=== PATIENT | female | born 1980 | race Caucasian/White ===

== ENCOUNTER 2019-08-18 06:57 | Inpatient (IN) ==
--- NOTE | 2019-07-30 15:55 | PAT Medication Instructions ---
Medication Instructions Date of Service July 30, 2019 Home Medications Nasal [place] 1 dose NA UD PRN Vicks Nasal [place] 1 dose NA Q4H PRN albuterol sulfate 2 puff INHALATION Q4H PRN brexpiprazole [Rexulti] 1 mg PO HS dextroamphetamine-amphetamine [Adderall] 10 mg PO DAILY dextroamphetamine-amphetamine [Adderall] 15 mg PO QAM levocetirizine [Xyzal] 10 mg PO DAILY meloxicam 7.5 mg PO DAILY minocycline 150 mg PO BID mometasone-formoterol [Dulera] 2 puff INHALATION BID omeprazole 40 mg PO BID pregabalin [Lyrica] 150 mg PO TID solriamfetol [Sunosi] 75 mg PO QAM venlafaxine [Effexor XR] 75 mg PO QAM venlafaxine [Effexor XR] 150 mg PO QAM ASK your surgeon for instructions meloxicam 7.5 mg PO DAILY DO NOT take the morning of surgery dextroamphetamine-amphetamine [Adderall] 10 mg PO DAILY dextroamphetamine-amphetamine [Adderall] 15 mg PO QAM levocetirizine [Xyzal] 10 mg PO DAILY solriamfetol [Sunosi] 75 mg PO QAM Take morning of surgery With a small sip of water, OTHERWISE NOTHING TO EAT OR DRINK AFTER MIDNIGHT: Nasal [place] 1 dose NA UD PRN (if needed) Vicks Nasal [place] 1 dose NA Q4H PRN (if needed) albuterol sulfate 2 puff INHALATION Q4H PRN (if needed, and please bring with you to the hospital) minocycline 150 mg PO BID mometasone-formoterol [Dulera] 2 puff INHALATION BID omeprazole 40 mg PO BID pregabalin [Lyrica] 150 mg PO TID venlafaxine [Effexor XR] 75 mg PO QAM venlafaxine [Effexor XR] 150 mg PO QAM Take evening before surgery Nasal [place] 1 dose NA UD PRN (if needed) Vicks Nasal [place] 1 dose NA Q4H PRN (if needed) albuterol sulfate 2 puff INHALATION Q4H PRN (if needed) brexpiprazole [Rexulti] 1 mg PO HS minocycline 150 mg PO BID mometasone-formoterol [Dulera] 2 puff INHALATION BID omeprazole 40 mg PO BID pregabalin [Lyrica] 150 mg PO TID Other Notes If you have any questions please call us at [phone] or [phone] or or [phone]
--- NOTE | 2019-07-31 10:58 | Anesthesiology Consultation ---
Date of Service July 31, 2019 Assessment & Plan (1) Encounter for pre-operative examination: test AM DOS Chart Review Chart Review: Acceptable Risk for Surgery and Patient seen in Pre Admission Testing Teaching & Discussion Instructed NPO after midnight before surgery, except medications with 15 cc of water. Medication instructions provided according to the PAT guidelines. History Surgery Operation Date: 08/18/19 09:35 Proposed Procedures p L4-L5 Decompression and Fusion, Spinal Cord Monitoring - Choco Sheldon, Height/Weight Height: 5 ft 5 in Weight: 73.3 kg Allergies Allergy/AdvReac Type Severity Reaction Status Date / Time tramadol [From Ultram] Allergy Severe ED VISIT Verified 07/24/19 09:00 FOR, LABORED BREATHING acetaminophen [From Percocet] Allergy Unknown Rash Verified 07/24/19 09:00 adhesive tape Allergy Unknown ITCHY/RASHY Verified 07/24/19 09:00 latex Allergy Unknown ITCHY/RASH Verified 07/24/19 09:00 oxycodone [From Percocet] Allergy Unknown Rash Verified 07/24/19 09:00 pneumococcal vaccine Allergy Unknown Hives Verified 07/24/19 09:00 Medications Home Medications Medication Instructions Recorded Confirmed Last Taken Nasal [place] 1 dose NA UD PRN 07/24/19 07/24/19 Unknown Vicks Nasal [place] 1 dose NA Q4H PRN 07/24/19 07/24/19 Unknown albuterol sulfate 2 puff INHALATION Q4H PRN 07/24/19 07/24/19 Unknown brexpiprazole [Rexulti] 1 mg PO HS 07/24/19 07/24/19 Unknown dextroamphetamine-amphetamine 10 mg PO DAILY 07/24/19 07/24/19 Unknown [Adderall] dextroamphetamine-amphetamine 15 mg PO QAM 07/24/19 07/24/19 Unknown [Adderall] levocetirizine [Xyzal] 10 mg PO DAILY 07/24/19 07/24/19 Unknown meloxicam 7.5 mg PO DAILY 07/24/19 07/24/19 Unknown minocycline 150 mg PO BID 07/24/19 07/24/19 Unknown mometasone-formoterol [Dulera] 2 puff INHALATION BID 07/24/19 07/24/19 Unknown omeprazole 40 mg PO BID 07/24/19 07/24/19 Unknown pregabalin [Lyrica] 150 mg PO TID 07/24/19 07/24/19 Unknown solriamfetol [Sunosi] 75 mg PO QAM 07/24/19 07/24/19 Unknown venlafaxine [Effexor XR] 75 mg PO QAM 07/24/19 07/24/19 Unknown venlafaxine [Effexor XR] 150 mg PO QAM 07/24/19 07/24/19 Unknown Past Medical History Medical History (Updated 07/31/19 @ 11:00 by Pb Benites) Abdominal lump Pt feels palpable mass in lower abdomen; painless; possibly umbilical hernia that was noted on CT scan years ago, pt will f/u with PCP. Acid reflux Anxiety GENERALIZED Asthma Using Dulera BID and albuterol QID (does not feel SOB before using albuterol but is currently using QID "to make sure airways stay open") Attention deficit disorder (ADD) in adult Bipolar disorder Depression Diverticulitis Elevated liver enzymes Fibromyalgia Frequent UTI OVER THE LAST YR, MOST RECENT : 2 MON AGO (MOST SELF DX/DRINKS CRANBERRY JUICE AND WATER AND RESOLVES) History of sleep apnea CPAP, NOT USING - LOST 140 POUNDS. Has not been restested. Hydradenitis Low kidney function Narcolepsy Phobia FEAR OF BODILY FLUIDS Pinched nerve AND BACK AND SLIPPED DISC Pinched nerve in neck Spinal stenosis TMJ (temporomandibular joint disorder) HX OF PARTIALLY LOCKING - MOST RECENTLY ~ 1 WEEK AGO, MASSAGED TO UNLOCK. Tourettes syndrome Dx when much younger, now noticing tics more frequently. Umbilical hernia Exercise / Class Metabolic Activity II 4-5 Yardwork/Stairs/Walk up hill (Denies CP or SOB with 1 FOS) Past Family History Family History (Updated 07/24/19 @ 09:18 by Boogie Ramirez RN) Aunt Family history of diabetes mellitus Family history of colon cancer Uncle Family history of diabetes mellitus Past Surgical History Surgical History History of 2 sections History of arthroscopy of left knee History of colonoscopy History of endoscopy MULTIPLE History of gastric bypass Past Anesthesia History No Hx of Anesthesia Complications and No Family Hx of Anesthesia Complications History of PONV No Hx of PONV and Hx of Motion Sickness Social History Smoking Status: Current every day smoker tobacco type: cigarettes Smoking cigarettes per day: 1/2 PPD/ADVISED NPO Do You Dip or Chew Tobacco: No Hx Alcohol Use: No Hx Substance Use: No substance use type: does not use Review of Systems Pt denies any recent chest pain, shortness of breath, cough, fever or URI. +palpitations (has PVCs occasionally) Physical Exam Vital Signs BP: 134/84 P: 93bpm SPO2: 100% RA T: 98.3% R: 16 ENMT Mouth: + chipped teeth (Lower R wisdom tooth); no dental restorations and no loose teeth Thyromental Distance: > or= 3.5 Finger Breadths (3.5) Mallampati Class: I Neck normal visual inspection; neck extension not limited Respiratory normal respiratory effort Auscultation: lungs clear to auscultation bilaterally Cardiovascular Rate/Rhythm: regular rhythm and + tachycardic (borderline) Heart Sounds: no murmur Extremities: no edema Testing Laboratory Results 07/31/19 11:05 PT 10.3 Seconds (9.0-12.0) 07/31/19 11:05 INR 1.0 (0.9-1.1) 07/31/19 11:05 APTT 28.1 Seconds (21.0-31.0) 07/31/19 11:05 Urine Color Yellow 07/31/19 Unknown Urine Appearance Clear (Clear) 07/31/19 Unknown Urine pH 5.5 (4.5-7.5) 07/31/19 Unknown Ur Specific [place] 1.013 (1.000-1.030) 07/31/19 Unknown Urine Protein Negative (Negative) 07/31/19 Unknown Urine Glucose (UA) Negative (Negative) 07/31/19 Unknown Urine Ketones Negative (Negative) 07/31/19 Unknown Urine Nitrite Negative (Negative) 07/31/19 Unknown Ur Leukocyte Esterase 1+ (Negative) H 07/31/19 Unknown Urine WBC (Auto) 1-5 /hpf (0-5) 07/31/19 Unknown Urine RBC (Auto) 5-10 /hpf (0-4) H 07/31/19 Unknown U Hyaline Cast (Auto) 1-5 /lpf (0-5) 07/31/19 Unknown U Epithel Cells (Auto) >30 /lpf (0-5) H 07/31/19 Unknown Urine Bacteria (Auto) Negative (Negative) 07/31/19 Unknown Blood Type A Positive 07/31/19 11:05 Antibody Screen NEGATIVE 07/31/19 11:05 06/26/19 SODIUM: 143 POTASSIUM: 4.7 CHLORIDE: 106 CO2: 29 BUN: 14 CREATININE: 0.7 GLUCOSE: 78 Electrocardiogram Date: 03/02/19 Findings: + ST @ (101bpm) Otherwise normal EKG. Chest X-Ray Date: 07/31/19 Findings: + NAD
--- NOTE | 2019-07-31 12:02 | XRay Report ---
XR chest Pre-admission PA/Lat HISTORY: Preop. COMPARISON: None. FINDINGS: The lungs are clear. Cardiac silhouette is normal in size. No pleural effusions. No pneumot horax. IMPRESSION: No acute process. ACT 112: Negative or not required by law. Electronically signed by: Randy Shin M.D. 07/31/2019 12:01 PM
[2019-07-31 12:34] LABS: Basophils # (auto) 0.06 K/uL (0-0.2); Basophils % (auto) 0.7 %; Eosinophils # (auto) 0.09 K/uL (0-0.5); Hematocrit (blood only) 39.3 % (37-47); Hemoglobin 13.5 g/dL (12.0-16.0); Immature Granulocytes # (auto) 0.01 K/uL (0.00-0.02); Immature Granulocytes % (auto) 0.1 %; Lymphocytes # (auto) 3.65 K/uL (1.2-3.4); Lymphocytes % (auto) 41.8 %; Mean Corpuscular Hemoglobin 31.2 pg (25-34); Mean Corpuscular Hgb Conc 34.4 g/dL (32-36); Mean Corpuscular Volume 90.8 fL (80-100); Mean Platelet Volume 10.4 fL (7.4-10.4); Monocytes # (auto) 0.56 K/uL (0.11-0.59); Monocytes % (auto) 6.4 %; Neutrophils # (auto) 4.36 K/uL (1.4-6.5); Platelet Count 229 K/uL (130-400); RDW Coefficient of Variation 12.7 % (11.5-14.5); RDW Standard Deviation 42.4 fL (36.4-46.3); Red Blood Count 4.33 M/uL (4.2-5.4); White Blood Count 8.73 K/uL (4.8-10.8)
[2019-07-31 12:35] LABS: Appearance Urine Clear (Clear); Bacteria Urine Automated Negative (Negative); Bilirubin Urine Negative (Negative); Blood Urine Negative (Negative); Color Urine Yellow; Epithelial Cell Urine Auto >30 /lpf (0-5); Glucose Urine UA Negative (Negative); Ketones Urine Negative (Negative); Leukocyte Esterase Urine 1+ (Negative); Nitrite Urine Negative (Negative); Protein Urine Negative (Negative); Specific Gravity Urine 1.013 (1.000-1.030); Urobilinogen Urine Negative (Negative); pH Urine 5.5 (4.5-7.5)
[2019-07-31 12:46] LABS: Partial Thromboplastin Time 28.1 Seconds (21.0-31.0); Prothrombin Time 10.3 Seconds (9.0-12.0)
--- NOTE | 2019-08-15 12:53 | History & Physical Report ---
Date of Service August 15, 2019 Assessment & Plan (1) Lumbar disc herniation with radiculopathy: This time patient is marked instability spinal listhesis at L4-5 with far lateral disc herniation progressive strength deficits affecting the right lower extremity compared to the left. Subsequently you are recommending urgent decompression and fusion L4-L5 so she does not risk development of permanent foot drop on the right. Risk benefits pros cons alternatives were outlined in detail. Present on Admission?: Yes History of Present Illness Chief Complaint: Back pain with bilateral leg pain and weakness Primary Care Provider: Daphne Konstantin This is a 39-year-old female that has a history of chronic persistent back pain but marked decline in status over the past several months. She describes pain and weakness affecting the right lower extremity greater than the left. It radiates into the buttock posterior lateral thigh extending into the foot. Standing clearly exacerbates her symptoms. She does obtain some relief by flexing forward. She is noting marked decline in strength particularly affecting the left foot dorsiflexion. Standing and walking has become intolerable. Allergies Allergy/AdvReac Type Severity Reaction Status Date / Time tramadol [From Ultram] Allergy Severe ED VISIT Verified 07/24/19 09:00 FOR, LABORED BREATHING acetaminophen [From Percocet] Allergy Unknown Rash Verified 07/24/19 09:00 adhesive tape Allergy Unknown ITCHY/RASHY Verified 07/24/19 09:00 latex Allergy Unknown ITCHY/RASH Verified 07/24/19 09:00 oxycodone [From Percocet] Allergy Unknown Rash Verified 07/24/19 09:00 pneumococcal vaccine Allergy Unknown Hives Verified 07/24/19 09:00 Home Medications Home Medications Medication Instructions Recorded Confirmed Type Nasal [place] 1 dose NA UD PRN 07/24/19 07/24/19 History Vicks Nasal [place] 1 dose NA Q4H PRN 07/24/19 07/24/19 History albuterol sulfate 2 puff INHALATION Q4H PRN 07/24/19 07/24/19 History brexpiprazole [Rexulti] 1 mg PO HS 07/24/19 07/24/19 History dextroamphetamine-amphetamine 10 mg PO DAILY 07/24/19 07/24/19 History [Adderall] dextroamphetamine-amphetamine 15 mg PO QAM 07/24/19 07/24/19 History [Adderall] levocetirizine [Xyzal] 10 mg PO DAILY 07/24/19 07/24/19 History meloxicam 7.5 mg PO DAILY 07/24/19 07/24/19 History minocycline 150 mg PO BID 07/24/19 07/24/19 History mometasone-formoterol [Dulera] 2 puff INHALATION BID 07/24/19 07/24/19 History omeprazole 40 mg PO BID 07/24/19 07/24/19 History pregabalin [Lyrica] 150 mg PO TID 07/24/19 07/24/19 History solriamfetol [Sunosi] 75 mg PO QAM 07/24/19 07/24/19 History venlafaxine [Effexor XR] 75 mg PO QAM 07/24/19 07/24/19 History venlafaxine [Effexor XR] 150 mg PO QAM 07/24/19 07/24/19 History Past Med/Surg History Medical History (Updated 08/15/19 @ 12:52 by Choco Sheldon DO) Abdominal lump Pt feels palpable mass in lower abdomen; painless; possibly umbilical hernia that was noted on CT scan years ago, pt will f/u with PCP. Acid reflux Anxiety GENERALIZED Asthma Using Dulera BID and albuterol QID (does not feel SOB before using albuterol but is currently using QID "to make sure airways stay open") Attention deficit disorder (ADD) in adult Bipolar disorder Depression Diverticulitis Elevated liver enzymes Fibromyalgia Frequent UTI OVER THE LAST YR, MOST RECENT : 2 MON AGO (MOST SELF DX/DRINKS CRANBERRY JUICE AND WATER AND RESOLVES) History of sleep apnea CPAP, NOT USING - LOST 140 POUNDS. Has not been restested. Hydradenitis Low kidney function Narcolepsy Phobia FEAR OF BODILY FLUIDS Pinched nerve AND BACK AND SLIPPED DISC Pinched nerve in neck Spinal stenosis TMJ (temporomandibular joint disorder) HX OF PARTIALLY LOCKING - MOST RECENTLY ~ 1 WEEK AGO, MASSAGED TO UNLOCK. Tourettes syndrome Dx when much younger, now noticing tics more frequently. Umbilical hernia Surgical History History of 2 sections History of arthroscopy of left knee History of colonoscopy History of endoscopy MULTIPLE History of gastric bypass Family History (Updated 07/24/19 @ 09:18 by Boogie Ramirez RN) Aunt Family history of diabetes mellitus Family history of colon cancer Uncle Family history of diabetes mellitus Social History Preferred Language: Danish Communication Ability: Effective Process Design Engineer Required: No Beliefs That Will Affect Care: Buddhism Buddhism Beliefs: JUDAISM Current Living Situation: Family and Other Current Living Situation Comment: SISTER AND FIANCE, 3 KIDS Other Information That Helps Us Care for You: No Feels Safe at Home: Yes Smoking Status: Current every day smoker Tobacco Type: cigarettes ; Cigarettes Per Day: 1/2 PPD/ADVISED NPO ; Do You Dip or Chew Tobacco: No ; Hx Alcohol Use: No Hx Substance Use: No Physical Exam Physical Exam: Patient is obvious distress. She is able to stand but must lean forward to obtain any relief. Lumbar extension reproduces severe pain down her legs right greater than left. Bench exam reveals tension signs bilaterally with straight leg raising. She has a 4/5 right dorsiflexion compared to the left 5/5. Quadriceps are symmetric at a 5/5. Heart is regular rate and rhythm Lungs clear to auscultation Results & Data Diagnostic Findings MRI lumbar spine demonstrates evidence of spondylolisthesis L4-5 with severe neuroforaminal stenosis right greater than left and evidence of disc herniation within the foramina. Axillary views demonstrate severe facet hypertrophy with subarticular lateral recess stenosis and acute far lateral disc herniation L4-5 on the right with marked encroachment of the exiting L4 nerve root.
[~2019-08-18 06:57] MED LIST: ACETAMINOPHEN 500 MG TAB PO SCH; CEFAZOLIN 1000MG 1,000 MG/7.5 ML SYR IV SCH; CeleBREX 200 MG CAP PO SCH; GABAPENTIN 900 MG DOSE PO SCH; LR 15ML/HR IV SCH
[2019-08-18] MEDS ORDERED: ACETAMINOPHEN 500 MG TAB ONE (07:57)
[2019-08-18] MEDS ORDERED: HYDROmorphone INJ 1 MG/ML SYRINGE IV PRN (09:17)
[2019-08-18] MEDS ORDERED: ONDANSETRON INJ 2 MG/ML 2 ML VIAL IV PRN ×2 (09:17→12:54)
[2019-08-18] MEDS ORDERED: ATROPINE SULFATE 0.1 MG/ML 10ML SYR IV PRN (09:17)
[2019-08-18] MEDS ORDERED: ePHEDrine sulfate 50 MG/ML AMP IV PRN (09:17)
--- NOTE | 2019-08-18 09:21 | History & Physical Bridge Note ---
Date of Service August 18, 2019 History & Physical Bridge Note I have examined the patient, reviewed the History & Physical and in the interval since the performance of the History & Physical I have noted the following changes of clinical significance: no changes noted
[2019-08-18] MEDS ORDERED: fentaNYL citrate 100 MCG/2 ML VIAL ONE ×2 (09:39→10:19)
[2019-08-18] MEDS ORDERED: MIDAZOLAM HCL 1 MG/ML 2ML VIAL ONE (09:39)
[2019-08-18] MEDS ORDERED: BUPIVACAINE/EPINEPHRINE 0.5% MPF 1:200,000 10 ML VIAL ONE (09:41)
[2019-08-18] MEDS ORDERED: BACITRACIN INJ 50,000 UNIT VIAL ONE (09:41)
[2019-08-18] MEDS ORDERED: PROPOFOL IV EMULSION 10 MG/ML 20 ML VIAL IV ONE (10:18)
[2019-08-18] MEDS ORDERED: LIDOCAINE HCL 2% 2 ML VIAL/AMP(20MG/ML) INFIL ONE (10:18)
[2019-08-18] MEDS ORDERED: ROCURONIUM BROMIDE 10 MG/ML 5 ML VIAL ONE (10:18)
[2019-08-18] MEDS ORDERED: DEXAMETHASONE SOD INJ 4 MG/ML VIAL ONE (10:19)
[2019-08-18] MEDS ORDERED: ONDANSETRON INJ 2 MG/ML 2 ML VIAL ONE (10:19)
[2019-08-18] MEDS ORDERED: FLOSEAL HEMOSTATIC MATRIX 10ML TOP ONE (10:53)
[2019-08-18] MEDS ORDERED: GLYCOPYRROLATE 0.2 MG/ML VIAL ONE (10:59)
[2019-08-18] MEDS ORDERED: NEOSTIGMINE METHYLSULFATE 5 MG/5 ML SYR ONE (10:59)
--- NOTE | 2019-08-18 11:42 | Operative Report ---
Post Operative Report Pre & Post Diagnosis Operation Date: 08/18/19 09:35 Pre-Op Diagnosis: Lumbar spinal stenosis with spondylolisthesis and bilateral radiculopathy Post-Op Diagnosis: Same I identified the patient and participated in the time-out.: Yes Procedure Operation Date: 08/18/19 09:35 Actual Procedures #1 lumbar decompression with bilateral medial facetectomies and foraminotomies L3-4 and L4-5. #2 posterior spinal fusion L4-5. #3 placement posterior instrumentation L4-5 per #4 interbody fusion L4-5 per #5 placement peek cage 14 x 22 mm at L3-4. #6 placement locally harvested morselized autograft in the posterior lateral gutters. #7 placement infuse collagen sponge plan master graft in the posterior lateral gutters and ostial amp and interbody space. Surgeon Choco Sheldon DO Surgical Garment Fitter Kacy Scott Estimated Blood Loss 150 Findings Consistent with Post-Op Diagnosis Specimens None Indications This is a 39-year-old female who presents with above-mentioned diagnosis and she was undergoing significant neurologic decline secondary to gross neural compression and development of weakness she is here for urgent decompression fusion. Description of Procedure Patient was met with identified informed consent obtained. Patient was then taken to the operative suite underwent an patient placed in a prone position the Estuardo table on top of the Srinivasa frame. All bony prominences well-padded eyes inspected to ensure no external pressure placed upon the. This point the lumbar spine was prepped and draped in normal sterile fashion. Sharp dissection with the assistance of Bovie cautery was performed down to and exposing the lamina and transverse processes of L4 and L5. From caudal cephalad fashion complete laminectomy of L4 partial laminectomy of L3 is performed including bilateral medial facetectomies and foraminotomies addressing severe spinal stenosis. Pedicle screws were then placed in L4 and L5 bilaterally with assistance of fluoroscopy and the proper sized azucena placed. Believe a transforaminal approach on the right a complete discectomy was performed endplates curetted to subcortical bleeding bone and a 14 x 22 mm peek cage with osteo-bone graft tapped in position. The rods were then compressed locked into final position bilaterally. The transverse processes of L4 and L5 bur to subcortical bleeding bone. Infuse collagen sponge master graft local autograft was placed in the posterior gutters. 15 round JACQUIE drain inserted. The incision was then closed with 1 Vicryl fascia 2-0 Vicryl subcutaneously and 4 Monocryl for final skin closure. Steri-Strips dressings placed. Patient will continue PACU stable condition. Please note Kacy Scott was present at the entire procedure involved the patient positioning complex portions of the surgery and final skin closure. Lastly spinal cord monitoring was utilized that the procedure and no changes noted. I attest to the content of the Intraoperative Record and any orders documented therein. Any exceptions are noted below.
--- NOTE | 2019-08-18 11:44 | Fluoroscopy Report ---
FL lumbar spine 2-3V HISTORY: 39 years-old Female L4-L5 DECOMPRESSION AND FUSION COMPARISON: None TECHNIQUE: 2 spot fluoroscopic images of the lumbar spine were obtained utilizing 26.0 seconds fluoro scopy time FINDINGS: Laminectomy with posterior interbody azucena and screw fusion and discectomy changes at what appears to b e the L4-L5 level. There is apparent transitional lumbosacral anatomy. Hardware appears intact. No ac mango fracture. IMPRESSION: Fluoroscopic assistance as above. Please see operative report for further details. ACT 112: Negative or not required by law. The above report was generated using voice recognition software. It may contain grammatical, syntax o r spelling errors. Electronically signed by: Rony Frank M.D. 08/18/2019 11:43 AM
[2019-08-18] MEDS: fentaNYL citrate 100 MCG/2 ML VIAL IV PRN ×4 (12:04→12:19)
--- NOTE | 2019-08-18 12:31 | Anesthesiology Progress Note ---
Date of Service August 18, 2019 Anesthesia Post Procedure Vital Signs Vital Signs: Temp Pulse Pulse Resp BP Pulse Ox 08/18/19 12:25 97.7 F 88 14 129/79 99 08/18/19 12:15 88 14 126/81 100 08/18/19 12:05 82 18 121/80 100 08/18/19 11:59 97.3 F L 94 H 20 123/90 97 08/18/19 07:45 98.1 F 87 18 118/81 99 Pain Intensity Lower Back: Pain Intensity: 5 Transfer of Care Handoff Completed per policy Notes Mental Status: alert / awake / arousable and participated in evaluation Patient Amnestic to Procedure: Yes Nausea / Vomiting: adequately controlled Pain: adequately controlled Airway Patency, RR, SpO2: stable & adequate BP & HR: stable & adequate Hydration State: stable & adequate Anesthetic Complications: no major complications apparent and Pt Satisfied with anesthetic care
[2019-08-18] MEDS ORDERED: NALOXONE HCL 0.4 MG/1 ML VIAL/CARP IV PRN (12:54)
[2019-08-18] MEDS ORDERED: SOD PHOSPHATE/SOD BIPHOSPHATE ENEMA 132 ML BTL PR PRN (12:54)
[2019-08-18] MEDS ORDERED: bisacodyL 10 MG SUPP PR PRN (12:54)
[2019-08-18] MEDS ORDERED: PROMETHAZINE HCL 12.5 MG in SODIUM CHLORIDE 0.9% 50 ML IV PRN (12:54)
[2019-08-18] MEDS ORDERED: VICKS PRN (12:54)
[2019-08-18] MEDS ORDERED: FAMOTIDINE 20 MG TAB PO PRN (12:54)
[2019-08-18] MEDS ORDERED: LORazepam 0.5 MG/1 ML VIAL IV PRN (12:54)
[2019-08-18] MEDS ORDERED: ALBUTEROL HFA 8 GM INHALER INH PRN (12:54)
[2019-08-18] MEDS ORDERED: ACETAMINOPHEN 500 MG TAB PO PRN (12:54)
[2019-08-18] MEDS ORDERED: METOCLOPRAMIDE HCL INJ 5 MG/ML 2 ML VIAL IV PRN (12:54)
[2019-08-18] MEDS ORDERED: HYDROmorphone INJ 0.5 MG/0.5 ML SYR IV PRN (12:54)
[2019-08-18] MEDS ORDERED: ACETAMINOPHEN 1,000 MG/100 ML VIAL IV PRN (12:54)
[2019-08-18] MEDS ORDERED: DO NOT ADMINISTER FLU VACCINE PRN (12:54)
[2019-08-18] MEDS ORDERED: ONDANSETRON 4 MG OD TAB PO PRN (12:54)
[2019-08-18] MEDS ORDERED: DO NOT ADMINISTER PNEUMOCOCCAL VACCINE PRN (12:54)
[2019-08-18] MEDS ORDERED: ALUMINUM/MAGNESIUM SUSP 30 ML UDC PO PRN (12:54)
[2019-08-18] MEDS ORDERED: MAGNESIUM HYDROXIDE SUSP 30 ML UDC PO PRN (12:54)
[2019-08-18] MEDS ORDERED: LORazepam 0.5 MG TAB PO PRN (12:54)
[2019-08-18] MEDS: LACTATED RINGER'S 1,000 ML IV SCH ×2 (13:06→22:01)
[2019-08-18] MEDS: PREGABALIN 150 MG CAP PO SCH ×2 (13:18→20:50)
[2019-08-18] MEDS: KETOROLAC 30 MG/ML VIAL IV SCH ×2 (13:18→20:50)
[2019-08-18] MEDS: [UNRECOGNIZED DRUG - REMARK] SCH ×8 (13:24→17:00)
--- NOTE | 2019-08-18 14:03 | Hospitalist Consultation ---
Date of Consultation August 18, 2019 Assessment & Plan (1) Lumbar disc herniation with radiculopathy: - POD#0 L4-L5 decompression and fusion by Dr. Sheldon - activity and wound care orders as per ortho - pain control with bowel regimen - PT/OT - monitor H/H for acute blood loss anemia and transfuse blood products PRN - EBL 150 cc (2) Asthma: -No signs of acute exacerbation -Continue home inhalers (3) Fibromyalgia: (4) Depression: (5) Bipolar disorder: (6) Anxiety: -Continue home medications (7) Attention deficit disorder (ADD) in adult: (8) Acid reflux: -Continue PPI (9) Hydradenitis: -Continue chronic minocycline (10) DVT prophylaxis: -Teds/SCDs as per spine orthopedics Thank you for this consultation. We will follow the patient with you during their hospital stay. You can reach a member of the [facility]ist Team 04/12 via pager @ [phone]. Supervising Physician Co-Signing Physician Notes ATTENDING ADDENDUM : pt seen and examined with Zena ZHONG please refer to her documentation for detail Briefly this a 39 yo Female with no significant past medical hx other than depression , anxiety disorder under went Lumber decompression fusion surgery for intractable back pain , limiting her daily activities pt seen post op reports of improvement of radicular pain on bilateral lower ext , back is sore from the surgical incision site no cough or SOB no chest heaviness, no fever or chills offers no other complain Physical exam : GENERAL: No sign of distress, HEENT: Sclera nonicteric, pink-purple bilateral equal reactive to light extraocular muscle intact Normal oral mucosa, neck: No JVD, no thyromegaly, trachea midline Lungs: Clear to auscultate, no wheeze or rales Cardiovascular: Regular S1 and S2, no murmur or gallop, no JVD, no lower ext remity edema Abdomen: Soft, nontender, bowel sounds active, no hepatosplenomegaly Extremities: s/p back surgery , no edema or deformity of lower extremities , no weakness or paresthesia Neuro: No focal neurological deficit, no dysarthria, no facial droop Psych: Alert awake oriented x3: Euthymic LUMBER DJD : with radicular pain s/p lumber decompression surgery POD #0 pt doing well post op will follow H&H in am to assess any evidence of acute blood anemia /post op FULL CODE History of Present Illness Reason for Consultation: Postop medical management Requesting Physician: Dr. Sheldon Attending Physician: Dr. Luong History of Present Illness 39-year-old female who is status post L4-L5 decompression and fusion today by Dr. Sheldon. Postoperatively, the patient is doing well. She reports her pain is well controlled. No numbness, tingling, weakness to lower extremities. She denies chest pain shortness of breath. No lightheadedness or dizziness. Denies abdominal pain and nausea. She has not voided since surgery. Allergies Allergy/AdvReac Type Severity Reaction Status Date / Time tramadol [From Ultram] Allergy Severe ED VISIT Verified 08/18/19 07:42 FOR, LABORED BREATHING adhesive tape Allergy Unknown ITCHY/RASHY Verified 08/18/19 07:42 latex Allergy Unknown ITCHY/RASH Verified 08/18/19 07:42 oxycodone [From Percocet] Allergy Unknown Rash Verified 08/18/19 07:42 pneumococcal vaccine Allergy Unknown Hives Verified 08/18/19 07:42 Home Medications Home Medications Medication Instructions Recorded Confirmed Type Vicks Nasal [place] 1 dose NA Q4H PRN 07/24/19 08/18/19 History albuterol sulfate 2 puff INHALATION Q4H PRN 07/24/19 08/18/19 History brexpiprazole [Rexulti] 1 mg PO HS 07/24/19 08/18/19 History dextroamphetamine-amphetamine 10 mg PO DAILY 07/24/19 08/18/19 History [Adderall] dextroamphetamine-amphetamine 15 mg PO QAM 07/24/19 08/18/19 History [Adderall] levocetirizine [Xyzal] 10 mg PO DAILY PRN 07/24/19 08/18/19 History meloxicam 7.5 mg PO DAILY 07/24/19 08/18/19 History minocycline 150 mg PO BID 07/24/19 08/18/19 History mometasone-formoterol [Dulera] 2 puff INHALATION BID 07/24/19 08/18/19 History omeprazole 40 mg PO BID 07/24/19 08/18/19 History pregabalin [Lyrica] 150 mg PO TID 07/24/19 08/18/19 History solriamfetol [Sunosi] 75 mg PO QAM 07/24/19 08/18/19 History venlafaxine [Effexor XR] 225 mg PO QAM 07/24/19 08/18/19 History acetaminophen [Acetaminophen Extra 500 mg PO Q6H PRN 08/18/19 08/18/19 History Strength] lubiprostone [Amitiza] 24 mcg PO BID PRN 08/18/19 08/18/19 History hydrocodone-acetaminophen See Rx Instructions .ROUTE 08/19/19 Rx .COMPLEX PRN #30 tab Patient History Medical History Abdominal lump Pt feels palpable mass in lower abdomen; painless; possibly umbilical hernia that was noted on CT scan years ago, pt will f/u with PCP. Acid reflux Anxiety GENERALIZED Asthma Using Dulera BID and albuterol QID (does not feel SOB before using albuterol but is currently using QID "to make sure airways stay open") Attention deficit disorder (ADD) in adult Bipolar disorder Depression Diverticulitis Elevated liver enzymes Fibromyalgia Frequent UTI OVER THE LAST YR, MOST RECENT : 2 MON AGO (MOST SELF DX/DRINKS CRANBERRY JUICE AND WATER AND RESOLVES) History of sleep apnea CPAP, NOT USING - LOST 140 POUNDS. Has not been restested. Hydradenitis Low kidney function Narcolepsy Phobia FEAR OF BODILY FLUIDS Pinched nerve AND BACK AND SLIPPED DISC Pinched nerve in neck Spinal stenosis TMJ (temporomandibular joint disorder) HX OF PARTIALLY LOCKING - MOST RECENTLY ~ 1 WEEK AGO, MASSAGED TO UNLOCK. Tourettes syndrome Dx when much younger, now noticing tics more frequently. Umbilical hernia Surgical History History of 2 sections History of arthroscopy of left knee History of colonoscopy History of endoscopy MULTIPLE History of gastric bypass Family History Aunt Family history of diabetes mellitus Family history of colon cancer Uncle Family history of diabetes mellitus Social History Preferred Language: Irish Communication Ability: Effective Ceramic Worker Required: No Beliefs That Will Affect Care: Confucianism Confucianism Beliefs: ALEVISM marital status: Current Living Situation: Family and Other Current Living Situation Comment: SISTER AND FIANCE, 3 KIDS Other Information That Helps Us Care for You: No Feels Safe at Home: Yes Smoking Status: Current every day smoker Tobacco Type: cigarettes ; Cigarettes Per Day: 1/2 PPD/ADVISED NPO ; Do You Dip or Chew Tobacco: No ; Hx Alcohol Use: No Hx Substance Use: No Review of Systems Review of Systems: ROS per HPI, all other systems reviewed and negative Physical Exam Constitutional: WD/WN, vitals as above Eyes: PERRL, conjunctivae normal, anicteric sclerae ENMT: external ear and nose normal, oropharynx normal Respiratory: normal respiratory effort, lungs clear to auscultation Cardiovascular: Rate/Rhythm: regular rate and regular rhythm Vessels: normal peripheral pulses Extremities: no edema Gastrointestinal (Abdomen): normal bowel sounds, soft, nontender, no hepatosplenomegaly Musculoskeletal: no cyanosis or clubbing, extremities motor strength 5/5 S/p back surgery, pedal pushes and pull strong bilaterally, drain in place draining bloody drainage Skin: no rashes, warm and dry Neurologic: PERRL, EOMI, accommodation nl, no face palsy, no dysarthria Psychiatric: A+Ox3, euthymic affect Results & Data Results & Data ([facility]) Vital Signs (Past 12 Hours) Vital Signs Temp Pulse Pulse Resp BP Pulse Ox 08/18/19 13:43 36.4 C L 90 18 113/71 100 08/18/19 13:13 36.5 C 99 H 18 120/76 100 08/18/19 12:45 36.9 C 88 16 126/83 97 08/18/19 12:25 36.5 C 88 14 129/79 99 08/18/19 12:15 88 14 126/81 100 08/18/19 12:05 82 18 121/80 100 08/18/19 11:59 36.3 C L 94 H 20 123/90 97 08/18/19 07:45 36.7 C 87 18 118/81 99
[2019-08-18] MEDS: HYDROmorphone INJ 1 MG/ML SYRINGE IV PRN ×2 (17:30→21:57)
[2019-08-18] MEDS: CEFAZOLIN 2000MG 2,000 MG/15 ML SYR IV SCH (18:18)
[2019-08-18] MEDS: PANTOprazole 40 MG TAB PO SCH (20:50)
[2019-08-18] MEDS: DOCUSATE SODIUM/SENNA 50/8.6MG TAB PO SCH (20:50)
[2019-08-19] MEDS: CEFAZOLIN 2000MG 2,000 MG/15 ML SYR IV SCH (02:14)
[2019-08-19] MEDS: KETOROLAC 30 MG/ML VIAL IV SCH ×2 (02:14→08:12)
[2019-08-19 05:18] LABS: Basophils # (auto) 0.02 K/uL (0-0.2); Basophils % (auto) 0.2 %; Eosinophils # (auto) 0.07 K/uL (0-0.5); Eosinophils % (auto) 0.8 %; Hematocrit (blood only) 30.1 % (37-47); Hemoglobin 10.1 g/dL (12.0-16.0); Immature Granulocytes # (auto) 0.01 K/uL (0.00-0.02); Immature Granulocytes % (auto) 0.1 %; Lymphocytes # (auto) 2.78 K/uL (1.2-3.4); Lymphocytes % (auto) 30.5 %; Mean Corpuscular Hemoglobin 31.6 pg (25-34); Mean Corpuscular Hgb Conc 33.6 g/dL (32-36); Mean Corpuscular Volume 94.1 fL (80-100); Mean Platelet Volume 9.6 fL (7.4-10.4); Monocytes # (auto) 0.52 K/uL (0.11-0.59); Monocytes % (auto) 5.7 %; Neutrophils % (auto) 62.7 %; Platelet Count 203 K/uL (130-400); RDW Coefficient of Variation 13.1 % (11.5-14.5); RDW Standard Deviation 45.3 fL (36.4-46.3)
[2019-08-19] MEDS: POLYETHYLENE (MIRALAX) 17 GM PACK PO SCH ×3 (05:40→17:11)
[2019-08-19 05:45] LABS: BUN Creatinine Ratio 31.7 (10-20); Est GFR (African American) 138.1; Est GFR (Non-African American) 119.1; Potassium 3.8 mmol/L (3.5-5.1)
[2019-08-19] MEDS: PREGABALIN 150 MG CAP PO SCH ×3 (08:11→21:08)
[2019-08-19] MEDS: HYDROCODONE/ACETAMOPHEN 5/325MG TAB PO PRN ×3 (08:11→17:59)
[2019-08-19] MEDS: AMPHETAMINE ASP/SULF/DEXTRAMPH 10 MG TAB PO SCH (08:11)
[2019-08-19] MEDS: PANTOprazole 40 MG TAB PO SCH ×2 (08:11→21:08)
[2019-08-19] MEDS: VENLAFAXINE HCL XR 75 MG CAPXR PO SCH (08:12)
[2019-08-19] MEDS: FLUTICASONE/VILANTEROL 100/25MCG 14 PUFFS/INHALER INH SCH (08:12)
--- NOTE | 2019-08-19 09:10 | Hospitalist Progress Note ---
Date of Service August 19, 2019 Assessment & Plan (1) Lumbar disc herniation with radiculopathy: POD#1 L4-L5 decompression and fusion by Dr. Sheldon EBL 150ml, JACQUIE drain: 390ml tolerated procedure well pain/wound management per ortho activity and therapy as directed by ortho DVT prophylaxis per ortho encourage incentive spirometry pain control with bowel regimen PT/OT (2) Anemia: H/H stable at 10.1 and 30.1 pre op 13.5 and 39.5 likely in setting of expected acute blood loss with surgery as well as dilutional component monitor (3) Asthma: No signs of acute exacerbation Continue home inhalers (4) Fibromyalgia: continue lyrica (5) Depression: flat effect, but mood stable continue effexor, rexulti (6) Bipolar disorder: continue meds, as above (7) Anxiety: mood stable Continue home medications (8) Attention deficit disorder (ADD) in adult: continue adderall (9) Acid reflux: Continue PPI (10) Hydradenitis: Continue chronic minocycline (11) Narcolepsy: continue sunosi (12) DVT prophylaxis: Teds/SCDs as per spine orthopedics Thank you for this consultation. We will follow the patient with you during their hospital stay. You [facility] via pager @ [phone]. Pt was seen and examined in collaboration with Dr. Luong, please see addendum Thank you for this consultation. We will follow the patient with you during their hospital stay. You can reach a [facility]/12 via pager @ [phone]. Admission and Anticipated Discharge Date Admission Date: August 18, 2019 Supervising Physician Co-Signing Physician Notes ATTENDING ADDENDUM : pt seen and examined with pt reports of feeling tired no fever or chills back pain has improved markedly since surgery Physical exam : GENERAL: No sign of distress, HEENT: Sclera nonicteric, pink-purple bilateral equal reactive to light extraocular muscle intact Normal oral mucosa, neck: No JVD, no thyromegaly, trachea midline Lungs: Clear to auscultate, no wheeze or rales Cardiovascular: Regular S1 and S2, no murmur or gallop, no JVD, no lower extremity edema Abdomen: Soft, nontender, bowel sounds active, no hepatosplenomegaly Extremities: s/p back surgery , no edema or deformity of lower extremities , no weakness or paresthesia Neuro: No focal neurological deficit, no dysarthria, no facial droop Psych: Alert awake oriented x3: Euthymic LUMBER DJD : with radicular pain s/p lumber decompression surgery POD #1 pt doing well post op mild drop in H&H noted Hb 10 , due to expected blood loss during surgery and post op drain no indication for transfusion Per Current Guideline : PRBC transfusion for hb < 7 or higher for hemodynamic instability FULL CODE please refer to documentation by Diana Atkinson PA-C for detail Latasha Luong MD Subjective Pt seen and examined in room 312-1. Follow of Lumbar surgery by Dr. Sheldon POD #1. Pt resting in bed comfortably. Pt is very tired but slept well last night. States, "I have narcolepsy." Complains of back pain but otherwise offers no complaints. Denies f/c/s, dizziness, lightheaded, CP, SOB, n/v abdominal pain. She is passing gas. Ambulated to bathroom this morning to urinate. Denies dysuria, hematuria. Ate most of breakfast. Good appetite. Review of Systems Review of Systems: All systems reviewed & are unremarkable except as noted in HPI & below Physical Exam Physical Exam: Gen: WD/WN, F, resting comfortably, NAD, A&O x3 HEENT: Normocephalic, atraumatic, conjunctivae moist, sclerae anicteric, mucous membranes moist. Large nose piercing Lung: Clear to Auscultation bilaterally, no wheezes/rales/rhonchi Heart: Regular rate, regular rhythm, no murmurs, rubs, or gallops Abdomen: Soft, NT, ND +BS x 4 Extremities: No edema, lumbar dressing CDI, JACQUIE drain with serosanguineous drainage Skin: Warm, no rash, negative turgor. Results & Data Results & Data ([facility]) Vital Signs (Past 12 Hours) Vital Signs Temp Pulse Resp BP Pulse Ox 08/19/19 07:51 36.9 C 86 16 104/68 97 08/19/19 03:41 36.8 C 84 12 106/66 98 08/18/19 23:21 36.8 C 83 12 120/73 96 Laboratory Results Short CBC 08/19/19 Range/Units 04:48 WBC 9.10 (4.8-10.8) K/uL Hgb 10.1 L (12.0-16.0) g/dL Hct 30.1 L (37-47) % Plt Count 203 (130-400) K/uL BMP 08/19/19 04:48 Sodium 140 Potassium 3.8 Chloride 109 H Carbon Dioxide 27 BUN 18 Creatinine 0.56 L Glucose 99 Calcium 8.0 L Medications Administered Hydrocodone Bitart/Acetaminophen ([place] 5/325) 1 - 2 tab PO Q4H PRN PRN Reason: Moderate-Severe Pain & Pre PT Stop: 09/01/19 12:53 Last Admin: 08/19/19 08:11 Dose: 2 tab Documented by: [id number] Amphetamine/Dextroamphetamine (Adderall) 15 mg PO QAM [facility] Stop: 09/18/19 08:59 Last Admin: 08/19/19 08:11 Dose: 15 mg Documented by: [id number] Fluticasone/Vilanterol (Breo Ellipta 100/25 Mcg Inh) 1 puffs INH DAILY [facility]; Protocol Stop: 09/18/19 08:59 Last Admin: 08/19/19 08:12 Dose: 1 puffs Documented by: [id number] Hydromorphone HCl (Dilaudid) 1 mg IV Q3H PRN PRN Reason: severe pain (scale 7-10) Stop: 09/01/19 12:53 Last Admin: 08/18/19 21:57 Dose: 1 mg Documented by: [id number] Admin: 08/18/19 17:30 Dose: 1 mg Documented by: [id number] Metoclopramide HCl (Reglan) 10 mg IV Q6H PRN PRN Reason: Nausea &/or Vomiting Stop: 09/17/19 12:53 Last Admin: 08/19/19 01:09 Dose: 10 mg Documented by: [id number] Miscellaneous (Order Awaiting Action) 1 ea N/A QS [facility] Stop: 09/17/19 15:59 Last Admin: 08/19/19 07:27 Dose: Not Given Documented by: [id number] Admin: 08/18/19 23:31 Dose: Not Given Documented by: [id number] Admin: 08/18/19 16:54 Dose: Not Given Documented by: [id number] Miscellaneous (Order Awaiting Action) 1 ea N/A QS [facility] Stop: 09/17/19 15:59 Last Admin: 08/19/19 07:27 Dose: Not Given Documented by: [id number] Admin: 08/18/19 23:31 Dose: Not Given Documented by: [id number] Admin: 08/18/19 16:54 Dose: Not Given Documented by: [id number] Miscellaneous (Order Awaiting Action) 1 ea N/A QS [facility] Stop: 09/17/19 15:59 Last Admin: 08/19/19 07:27 Dose: Not Given Documented by: [id number] Admin: 08/18/19 23:32 Dose: Not Given Documented by: [id number] Admin: 08/18/19 16:54 Dose: Not Given Documented by: [id number] Ondansetron HCl (Zofran) 4 mg IV Q6H PRN PRN Reason: Nausea &/or Vomiting Stop: 09/17/19 12:53 Last Admin: 08/18/19 21:51 Dose: 4 mg Documented by: [id number] Pantoprazole Sodium (Protonix) 40 mg PO BID [facility] Stop: 09/17/19 20:59 Last Admin: 08/19/19 08:11 Dose: 40 mg Documented by: [id number] Admin: 08/18/19 20:50 Dose: 40 mg Documented by: [id number] Polyethylene Glycol (Miralax Powder Packet) 17 gm PO Q6 [facility] Stop: 09/18/19 05:59 Last Admin: 08/19/19 05:40 Dose: 17 gm Documented by: [id number] Pregabalin (Lyrica) 150 mg PO TID [facility] Stop: 09/17/19 13:59 Last Admin: 08/19/19 08:11 Dose: 150 mg Documented by: [id number] Admin: 08/18/19 20:50 Dose: 150 mg Documented by: [id number] Admin: 08/18/19 13:18 Dose: 150 mg Documented by: [id number] Senna/Docusate Sodium (Senokot S) 2 tab PO HS [facility] Stop: 09/17/19 20:59 Last Admin: 08/18/19 20:50 Dose: 2 tab Documented by: [id number] Venlafaxine HCl (Effexor Extended Release) 225 mg PO QAM [facility] Stop: 09/18/19 08:59 Last Admin: 08/19/19 08:12 Dose: 225 mg Documented by: [id number] Discontinued Medications Acetaminophen (Tylenol) Confirm Administered Dose 1,000 mg .ROUTE .STK-MED ONE Stop: 08/18/19 07:58 Last Admin: 08/18/19 08:02 Dose: 1,000 mg Documented by: [id number] Bacitracin (Bacitracin) Confirm Administered Dose 50,000 units .ROUTE .STK-MED ONE Stop: 08/18/19 09:42 Last Admin: 08/18/19 11:32 Dose: 50,000 units Documented by: [id number] Bupivacaine HCl/Epinephrine Bitart (Sensorcaine/Epinephrine 0.5% Mpf 1:200,000) Confirm Administered Dose 30 ml .ROUTE .STK-MED ONE Stop: 08/18/19 09:42 Last Admin: 08/18/19 10:55 Dose: 30 ml Documented by: [id number] Celecoxib (Celebrex) 200 mg PO PREOP SRINIVAS Stop: 08/18/19 18:00 Last Admin: 08/18/19 08:03 Dose: 200 mg Documented by: [id number] Fentanyl Citrate (Fentanyl Citrate) 25 mcg IV Q5M PRN PRN Reason: PACU Use Only-Pain Stop: 08/18/19 17:18 Last Admin: 08/18/19 12:19 Dose: 25 mcg Documented by: [id number] Admin: 08/18/19 12:14 Dose: 25 mcg Documented by: [id number] Admin: 08/18/19 12:09 Dose: 25 mcg Documented by: [id number] Admin: 08/18/19 12:04 Dose: 25 mcg Documented by: [id number] Gabapentin (Neurontin) 900 mg PO PREOP SRINIVAS Stop: 08/18/19 18:00 Last Admin: 08/18/19 08:03 Dose: 900 mg Documented by: [id number] Lactated Ringer's (Lr) 1,000 mls @ 15 mls/hr IV .Q24H RSINIV[facility] Stop: 08/19/19 05:59 Last Infusion: 08/18/19 09:50 Dose: 0 mls/hr Documented by: [id number] Admin: 08/18/19 07:49 Dose: 15 mls/hr Documented by: [id number] Cefazolin Sodium (Ancef 1000mg) 1,000 mg in 7.5 mls @ 2.5 mls/min IV PREOP SRINIVAS; Protocol Stop: 08/18/19 18:00 Last Admin: 08/18/19 09:50 Dose: 2.5 mls/min Documented by: [id number] Lactated Ringer's (Lr) 1,000 mls @ 100 mls/hr IV .Q10H [facility] Stop: 09/17/19 12:53 Last Infusion: 08/19/19 06:30 Dose: 0 mls/hr Documented by: [id number] Admin: 08/18/19 22:01 Dose: 100 mls/hr Documented by: [id number] Infusion: 08/18/19 22:01 Dose: 100 mls/hr Documented by: [id number] Admin: 08/18/19 13:06 Dose: 100 mls/hr Documented by: [id number] Cefazolin Sodium (Ancef 2000mg) 2,000 mg in 15 mls @ 3.75 mls/min IV Q8H [facility]; Protocol Stop: 08/19/19 02:03 Last Admin: 08/19/19 02:14 Dose: 3.75 mls/min Documented by: [id number] Admin: 08/18/19 18:18 Dose: 3.75 mls/min Documented by: [id number] Ketorolac Tromethamine (Toradol) 30 mg IV Q6H [facility] Stop: 08/19/19 08:01 Last Admin: 08/19/19 08:12 Dose: 30 mg Documented by: [id number] Admin: 08/19/19 02:14 Dose: 30 mg Documented by: [id number] Admin: 08/18/19 20:50 Dose: 30 mg Documented by: [id number] Admin: 08/18/19 13:18 Dose: 30 mg Documented by: [id number] Miscellaneous (Floseal Hemostatic Matrix 10ml) 20 ml TOP ONCE ONE Stop: 08/18/19 10:54 Last Admin: 08/18/19 11:33 Dose: 10 ml Documented by: [id number] Miscellaneous Information (Allergy Noted To Ordered Medication) 1 ea N/A QSHIFT [facility] Stop: 08/18/19 15:59 Last Admin: 08/18/19 17:00 Dose: Not Given Documented by: [id number] Admin: 08/18/19 17:00 Dose: Not Given Documented by: [id number] Admin: 08/18/19 17:00 Dose: Not Given Documented by: [id number] Admin: 08/18/19 17:00 Dose: Not Given Documented by: [id number] Admin: 08/18/19 13:35 Dose: Not Given Documented by: [id number] Admin: 08/18/19 13:35 Dose: Not Given Documented by: [id number] Admin: 08/18/19 13:34 Dose: Not Given Documented by: [id number] Admin: 08/18/19 13:34 Dose: Not Given Documented by: [id number] Admin: 08/18/19 13:33 Dose: Not Given Documented by: [id number] Admin: 08/18/19 13:33 Dose: Not Given Documented by: [id number] Admin: 08/18/19 13:32 Dose: Not Given Documented by: [id number] Admin: 08/18/19 13:26 Dose: 1 ea Documented by: [id number] Admin: 08/18/19 13:26 Dose: 1 ea Documented by: [id number] Admin: 08/18/19 13:25 Dose: 1 ea Documented by: [id number] Admin: 08/18/19 13:24 Dose: Not Given Documented by: [id number] Ondansetron HCl (Zofran) 4 mg IV ONCE PRN PRN Reason: PACU Use Only-Nausea/Vomiting Stop: 08/18/19 17:18 Last Admin: 08/18/19 12:04 Dose: 4 mg Documented by: [id number]
--- NOTE | 2019-08-19 10:27 | Orthopedic Progress Note ---
Date of Service August 19, 2019 Assessment & Plan (1) Lumbar disc herniation with radiculopathy: This time we will continue physical therapy monitor JACQUIE output hopefully discharge home tomorrow. Present on Admission?: Yes Admission and Anticipated Discharge Date Admission Date: August 18, 2019 Subjective Back pain controlled leg symptoms markedly improved. Physical Exam Physical Exam: Patient is good strength testing she appears comfortable. Results & Data ([facility]) Vital Signs (Past 12 Hours) Vital Signs Temp Pulse Resp BP Pulse Ox 08/19/19 09:24 98 08/19/19 07:51 36.9 C 86 16 104/68 97 08/19/19 03:41 36.8 C 84 12 106/66 98 08/18/19 23:21 36.8 C 83 12 120/73 96
[2019-08-19] MEDS ORDERED: AMPHETAMINE ASP/SULF/DEXTRAMPH 10 MG TAB PO SCH (14:00)
[2019-08-19] MEDS: NICOTINE 21 MG/24 HR TDSY TD SCH (16:59)
[2019-08-19] MEDS: DOCUSATE SODIUM/SENNA 50/8.6MG TAB PO SCH (21:08)
[2019-08-20] MEDS: POLYETHYLENE (MIRALAX) 17 GM PACK PO SCH ×2 (00:08→05:44)
[2019-08-20] MEDS: HYDROCODONE/ACETAMOPHEN 5/325MG TAB PO PRN ×2 (02:21→08:39)
[2019-08-20] MEDS: VENLAFAXINE HCL XR 75 MG CAPXR PO SCH (08:29)
[2019-08-20] MEDS: FLUTICASONE/VILANTEROL 100/25MCG 14 PUFFS/INHALER INH SCH (08:29)
[2019-08-20] MEDS: NICOTINE 21 MG/24 HR TDSY TD SCH (08:29)
[2019-08-20] MEDS: PANTOprazole 40 MG TAB PO SCH (08:30)
[2019-08-20] MEDS: AMPHETAMINE ASP/SULF/DEXTRAMPH 10 MG TAB PO SCH (08:39)
[2019-08-20] MEDS: PREGABALIN 150 MG CAP PO SCH (08:39)
[2019-08-20 09:07] LABS: Hematocrit (blood only) 29.3 % (37-47); Hemoglobin 9.5 g/dL (12.0-16.0)
[2019-08-20] MEDS ORDERED: DICYCLOMINE HCL 10 MG CAP PO PRN (10:00)
--- NOTE | 2019-08-20 10:09 | Hospitalist Progress Note ---
Date of Service August 20, 2019 Assessment & Plan (1) Lumbar disc herniation with radiculopathy: POD#2 L4-L5 decompression and fusion by Dr. Sheldon tolerated procedure well pain/wound management per ortho activity and therapy as directed by ortho DVT prophylaxis per ortho encourage incentive spirometry pain control with bowel regimen PT/OT (2) Anemia: Acute blood loss/ postoperative anemia Current Hgb 9.5 - stable from yesterday pre op 13.5 and 39.5 likely in setting of expected acute blood loss with surgery as well as dilutional component monitor (3) Asthma: No signs of acute exacerbation Continue home inhalers (4) Fibromyalgia: continue lyrica (5) Depression: euthymic effect, mood stable continue effexor, rexulti (6) Bipolar disorder: continue meds, as above (7) Anxiety: mood stable Continue home medications (8) Attention deficit disorder (ADD) in adult: continue adderall (9) Acid reflux: Continue PPI (10) Hydradenitis: Continue chronic minocycline (11) Narcolepsy: continue sunosi (12) DVT prophylaxis: Teds/SCDs as per spine orthopedics Thank you for this consultation. We will follow the patient with you during their hospital stay. You can reach a member of the [facility]ist Team 04/12 via pager @ [phone]. Admission and Anticipated Discharge Date Admission Date: August 18, 2019 Subjective No acute events overnight. Hgb 9.5 stable No dizziness, lightheadedness, chest pain,shortness of breath, abd. pain, nause a, vomiting. Had small BM. Ambulating in hallways. Pain is controlled. Review of Systems Review of Systems: All systems reviewed & are unremarkable except as noted in HPI & below Constitutional: no fever and no chills Respiratory: no cough and no dyspnea Cardiovascular: no chest pain, no palpitations and no lightheadedness Gastrointestinal: no abdominal pain, no nausea and no vomiting Physical Exam Physical Exam: GENERAL: young female, sitting up in bed in NAD HEENT: NC/AT, EOMI, PERRL, moist oral mucosa, neck: No JVD, no thyromegaly, trachea midline Lungs: Clear to auscultate, no wheeze or rales Cardiovascular: Regular S1 and S2, no murmur or gallop, no JVD, no lower extremity edema Abdomen: Soft, nontender, nondistended, bowel sounds active Extremities: s/p back surgery , no edema or deformity of lower extremities , no weakness or paresthesia Neuro: alert and oriented, speech fluent, no facial asymmetry, speech fluent, moves all extremities spontaneously, No focal neurological deficit noted Psych: Alert awake oriented x3: Euthymic Results & Data Results & Data ([facility]) Vital Signs (Past 12 Hours) Vital Signs Temp Pulse Resp BP Pulse Ox 08/20/19 10:02 36.7 C 94 H 18 111/72 99 08/20/19 07:06 36.8 C 94 H 16 102/66 98 08/19/19 23:05 37.0 C 95 H 14 99/59 L 97 Laboratory Results 08/20/19 Range/Units 08:57 Hgb 9.5 L (12.0-16.0) g/dL Hct 29.3 L (37-47) % Medications Administered Current Inpatient Medications Acetaminophen (Tylenol) 1,000 mg PO Q8H PRN PRN Reason: MILD Pain Scale 1,2,3 & Pre PT Stop: 09/17/19 12:53 Hydrocodone Bitart/Acetaminophen ([place] 5/325) 1 - 2 tab PO Q4H PRN PRN Reason: Moderate-Severe Pain & Pre PT Stop: 09/01/19 12:53 Last Admin: 08/20/19 08:39 Dose: 2 tab Documented by: Al Hydrox/Mg Hydrox/Simethicone (Maalox) 30 ml PO Q6H PRN PRN Reason: Dyspepsia Stop: 09/17/19 12:53 Albuterol (Ventolin Hfa) 2 puffs INH Q4H PRN PRN Reason: ASTHMA Stop: 09/17/19 12:53 Amphetamine/Dextroamphetamine (Adderall) 10 mg PO DAILY@1400 [facility] Stop: 09/02/19 13:59 Last Admin: 08/19/19 12:17 Dose: 10 mg Documented by: Amphetamine/Dextroamphetamine (Adderall) 15 mg PO QAM SRINIVAS Stop: 09/18/19 08:59 Last Admin: 08/20/19 08:39 Dose: 15 mg Documented by: Bisacodyl (Dulcolax) 10 mg MN DAILY PRN PRN Reason: Constipation Stop: 09/17/19 12:53 Diphenhydramine HCl (Benadryl Capsule) 25 mg PO Q6H PRN PRN Reason: Allergic Rhinitis/Insomnia Stop: 09/17/19 12:53 Famotidine (Pepcid) 20 mg PO Q12H PRN PRN Reason: Dyspepsia Stop: 09/17/19 12:53 Fluticasone/Vilanterol (Breo Ellipta 100/25 Mcg Inh) 1 puffs INH DAILY SRINIVAS; Protocol Stop: 09/18/19 08:59 Last Admin: 08/20/19 08:29 Dose: 1 puffs Documented by: Hydromorphone HCl (Dilaudid) 0.5 mg IV Q3H PRN PRN Reason: MOD pain (scale 4-6) & Pre PT Stop: 09/01/19 12:53 Hydromorphone HCl (Dilaudid) 1 mg IV Q3H PRN PRN Reason: severe pain (scale 7-10) Stop: 09/01/19 12:53 Last Admin: 08/18/19 21:57 Dose: 1 mg Documented by: Hydroxyzine HCl (Vistaril) 25 mg PO Q8H PRN PRN Reason: Anxiety Stop: 09/17/19 12:53 Promethazine HCl 12.5 mg/ (Sodium Chloride) 50.5 mls @ 204 mls/hr IV Q6H PRN PRN Reason: Nausea &/or Vomiting Stop: 09/17/19 12:53 Lorazepam (Ativan) 0.5 mg in 1 mls @ 0.5 mls/min IV Q8H PRN PRN Reason: Sedation/Anxiety Stop: 09/17/19 12:53 Influenza Virus Vaccine Quadrival (Flu Vaccine, Do Not Administer) 1 ea N/A PRN PRN PRN Reason: Notification Stop: 09/17/19 12:53 Lorazepam (Ativan) 0.5 mg PO Q8H PRN PRN Reason: Sedation/Anxiety Stop: 09/17/19 12:53 Magnesium Hydroxide (Milk Of Magnesia) 30 ml PO DAILY PRN PRN Reason: Constipation Stop: 09/17/19 12:53 Metoclopramide HCl (Reglan) 10 mg IV Q6H PRN PRN Reason: Nausea &/or Vomiting Stop: 09/17/19 12:53 Last Admin: 08/19/19 01:09 Dose: 10 mg Documented by: Miscellaneous (Order Awaiting Action) 1 ea N/A QS [facility] Stop: 09/17/19 15:59 Last Admin: 08/20/19 08:26 Dose: Not Given Documented by: Shoshanacellaneous (Order Awaiting Action) 1 ea N/A QS [facility] Stop: 09/17/19 15:59 Last Admin: 08/20/19 08:26 Dose: Not Given Documented by: Shoshanacellaneous (Order Awaiting Action) 1 ea N/A QS [facility] Stop: 09/17/19 15:59 Last Admin: 08/20/19 08:27 Dose: Not Given Documented by: Shoshanacellaneous (Remove Nicoderm Patch) 1 ea N/A DAILY@0859 [facility] Stop: 09/19/19 08:58 Last Admin: 08/20/19 08:30 Dose: 1 ea Documented by: Naloxone HCl (Narcan) 0.1 mg IV Q5M PRN; Protocol PRN Reason: Oversedation/Resp Depression Stop: 09/17/19 12:53 Nicotine (Nicoderm Cq) 21 mg TD QAM [facility] Stop: 09/18/19 14:44 Last Admin: 08/20/19 08:29 Dose: 21 mg Documented by: Ondansetron HCl (Zofran) 4 mg IV Q6H PRN PRN Reason: Nausea &/or Vomiting Stop: 09/17/19 12:53 Last Admin: 08/18/19 21:51 Dose: 4 mg Documented by: Ondansetron HCl (Zofran Odt) 4 mg PO Q6H PRN PRN Reason: Nausea Stop: 09/17/19 12:53 Pantoprazole Sodium (Protonix) 40 mg PO BID [facility] Stop: 09/17/19 20:59 Last Admin: 08/20/19 08:30 Dose: 40 mg Documented by: Pneumococcal Polyvalent Vaccine (Pneumococcal Vacc, Do Not Administer) 1 ea N/A PRN PRN PRN Reason: Notification Stop: 09/17/19 12:53 Polyethylene Glycol (Miralax Powder Packet) 17 gm PO Q6 [facility] Stop: 09/18/19 05:59 Last Admin: 08/20/19 05:44 Dose: 17 gm Documented by: Pregabalin (Lyrica) 150 mg PO TID [facility] Stop: 09/17/19 13:59 Last Admin: 08/20/19 08:39 Dose: 150 mg Documented by: Senna/Docusate Sodium (Senokot S) 2 tab PO [facility] Stop: 09/17/19 20:59 Last Admin: 08/19/19 21:08 Dose: 2 tab Documented by: Sodium Biphosphate/Sodium Phosphate (Fleet Enema) 132 ml MN ONE PRN PRN Reason: Constipation Stop: 09/17/19 12:53 Venlafaxine HCl (Effexor Extended Release) 225 mg PO [facility] Stop: 09/18/19 08:59 Last Admin: 08/20/19 08:29 Dose: 225 mg Documented by:
--- NOTE | 2019-08-20 10:14 | Discharge Summary ---
Date of Service August 20, 2019 Admission HPI Per Admitting Provider This is a 39-year-old female that has a history of chronic persistent back pain but marked decline in status over the past several months. She describes pain and weakness affecting the right lower extremity greater than the left. It radiates into the buttock posterior lateral thigh extending into the foot. Standing clearly exacerbates her symptoms. She does obtain some relief by flexing forward. She is noting marked decline in strength particularly affecting the left foot dorsiflexion. Standing and walking has become intolerable. Principal Diagnosis Lumbar spinal stenosis with spinal listhesis and bilateral radiculopathy Discharge Data Allergies Allergy/AdvReac Type Severity Reaction Status Date / Time tramadol [From Ultram] Allergy Severe ED VISIT Verified 08/18/19 07:42 FOR, LABORED BREATHING adhesive tape Allergy Unknown ITCHY/RASHY Verified 08/18/19 07:42 latex Allergy Unknown ITCHY/RASH Verified 08/18/19 07:42 oxycodone [From Percocet] Allergy Unknown Rash Verified 08/18/19 07:42 pneumococcal vaccine Allergy Unknown Hives Verified 08/18/19 07:42 Consultations 08/18/19 12:54 Consult Case Management - Discharge Planning Routine Consult Hospitalist Routine Procedures Performed Operation Date: 08/18/19 09:35 Actual Procedures p L4-L5 Decompression and Fusion, Spinal Cord Monitoring(Not Applicable) - Choco Sheldon DO Ordered Studies 08/18/19 09:35 FL fluoroscopy <1hr Routine FL lumbar spine 2-3V Routine Hospital Course (1) Lumbar disc herniation with radiculopathy: Patient underwent lumbar decompression fusion tolerated this well was taken to orthopedic floor postoperative. Postop day #1 back pain was controlled her leg pain numbness and strength seem to be improving nicely. She tolerated physical therapy. She progressed to postop day #2. JACQUIE drain decreased appropriately. Strength continue to improve as well as her ambulation subsequently discharged home. Discharge orders instructions from the chart for further review. Total Time Total Time Spent Total Time Spent (In Minutes): 20 minutes Discharge Plan Discharge Items Patient Disposition: Home - Self-Care Reason For Visit: Spinal Stenosis, Lumbar Region Discharge Diagnosis: Lumbar spinal stenosis with spondylolisthesis and radiculopathy Activity: As commented below Non-emergency contact: Primary Care Provider Call non-emergency contact if: you have any medication questions Follow-up/Referrals: Daphne Pryor PA-C [Primary Care Provider] - Diet: Regular Addtl Attending Provider Instructions: ACTIVITY RECOMMENDATIONS: SELF CARE INSTRUCTIONS AFTER THORACIC/LUMBAR FUSIONS 1. You may walk to your tolerance. It is good exercise for your legs and back. Expect some back and intermittent leg aches and pains. 2. You may perform "counter-top" level activities (make a sandwich, toni with a project, etc.). 3. No bending or lifting of more than 10 pounds or back twisting of any nature (roll like a log when turning in bed). 4. You may ride in a car for 20-30 minutes at a time. No driving until after your first visit with your doctor. 5. Frequent changes of position and restricting sitting to 30 minutes at a time will help limit the amount of back spasms and stiffness you may experience. 6. You may discontinue the use of ambulatory aids (cane, crutches, etc.) once your strength and confidence allow. 7. You may shooting gallery operator the shower and let water strike your incision when you arrive home at least once daily. Do not take a tub bath, sit in a hot tub or go into a swimming pool until after your first recheck in the office. SPECIAL CARE INSTRUCTIONS: VERY IMPORTANT TO READ AND REVIEW A. Your surgical incision has been closed with a cosmetic suture under the skin that will dissolve in about 6 weeks. In 14 days, you can use a pair of clean scissors and cut the suture that is left outside of the skin at the ends of your incision. 1. The small skin tapes can be removed 7 days after surgery if they have not fallen off by that point. 2. You may keep the wound open to air as much as possible to promote healing after post-op day number 5 unless told otherwise by your doctor. 3. If you think the wound looks like it is becoming infected (redness or worsening drainage) and/or you are experiencing fever, chill or worsening back pain and muscle spasms, contact the office so that we may evaluate you as soon as possible. B. Complications are uncommon, but please contact us if you have any signs or symptoms of: 1. wound infection (fever higher than 102.5 degrees F, redness, separation of wound, drainage, or increasing pain from the incision) 2. blood clots in legs (pain, swelling, redness and warmth in legs) 3. urinary tract infection (fever higher than 102.5 degrees F, burning upon urination or increased frequency of urination) 4. nerve problems (inability to walk on your toes or heels, numbness, loss of bowel or bladder control) 5. any other symptoms that concern you C. Please call the office at if you have any concerns or questions about your operation or recovery. D. No smoking! Smoking drastically decreases the chance of a solid fusion. E. Do not take any anti-inflammatory medications (Indocin, Advil, Motrin, Aspirin, Naprosyn, etc.) as these may inhibit the chance of a solid fusion. Tylenol is okay to take for pain. MANAGING PAIN AFTER SPINAL SURGERY 1. Narcotic medication is intended for short-term use and will be provided for surgical pain. Surgical pain usually lasts for a period of 4-6 weeks. Narcotic medication includes Percocet, Vicodin, Darvocet, Tylenol #3 or Lortab. 2. Longer-term pain is more appropriately treated with non-narcotic medication such as Tylenol ES. 3. Muscle spasm is not appropriately treated with narcotics. Muscle relaxers such as Soma, Flexeril or Skelaxin can be used along with Tylenol ES. 4. Remember that we all live with some "aches and pains". This is not unusual or uncommon after an injury or as we get older. a. Back pain is expected and may include muscle spasms for 4 to 6 weeks after surgery. The pain should gradually improve. If the pain worsens for no apparent reason, please contact the office. b. Intermittent leg pain may also be experienced and should not be concerned about unless it worsens for no apparent reason. If so, please contact the office. 5. We will provide appropriate medication within the normal guidelines of their prescribed use. We will also be very cautious and aware of potential abuse and extended duration of patients' medication needs. a. Pain medications are for your comfort and to assist with sleep and rest so that the tissue can heal. They are not provided in order to return to normal activity and should not be used through the day. To do so or worsening pain at night can result from ongoing tissue damage and development of tolerance to the prescribed medicine. 6. Please allow 2-3 days to process refills. Prescriptions will not be mailed but must be picked up at the office. FOLLOW UP VISIT: Keep your scheduled follow-up appointment. Any questions, please call the office at . Pending Studies at Discharge: No Stand-Alone Forms: My [facility], Smoking Cessation Medications and DC Order Prescriptions: New hydrocodone-acetaminophen 5-325 mg tablet See Rx Instructions .ROUTE .COMPLEX PRN (Reason: pain) Qty: 30 RF: 0 Continued venlafaxine [Effexor XR] 75 mg Capsule,Extended Release 24hr 225 mg PO QAM RF: 0 omeprazole 40 mg Capsule,Delayed Release(Dr/Ec) 40 mg PO BID RF: 0 pregabalin [Lyrica] 150 mg Capsule 150 mg PO TID RF: 0 levocetirizine [Xyzal] 5 mg Tablet 10 mg PO DAILY PRN (Reason: Allergy Symptoms) RF: 0 Rexulti 1 mg Tablet 1 mg PO HS RF: 0 albuterol sulfate 90 mcg/actuation Hfa Aerosol Inhaler 2 puff INHALATION Q4H PRN (Reason: ASTHMA ) RF: 0 Dulera 100-5 mcg/actuation Hfa Aerosol Inhaler 2 puff INHALATION BID RF: 0 Sunosi 75 mg Tablet 75 mg PO QAM RF: 0 Vicks Nasal [place] 1 dose NA Q4H PRN (Reason: Nasal Congestion) RF: 0 dextroamphetamine-amphetamine [Adderall] 10 mg Tablet 10 mg PO DAILY RF: 0 dextroamphetamine-amphetamine [Adderall] 15 mg Tablet 15 mg PO QAM RF: 0 minocycline 100 mg Tablet 150 mg PO BID RF: 0 acetaminophen [Acetaminophen Extra Strength] 500 mg Tablet 500 mg PO Q6H PRN (Reason: Pain) RF: 0 Amitiza 24 mcg Capsule 24 mcg PO BID PRN (Reason: Abdominal Pain) RF: 0 Discontinued meloxicam 7.5 mg Tablet 7.5 mg PO DAILY RF: 0 Discharge Orders: Discharge Order (Routine); Ordered 08/20/19 Ordered By: Choco Sheldon Admission Data Admit Date/Time: 08/18/19 12:01 Attending Provider: Choco Sheldon Admit Provider: Choco Sheldon Primary Care Provider: Daphne Pryor Other Providers: Kemar Worthy
== END 2019-08-20 11:30 | disposition home or self-care (01) | DRG 454 ==
LOC: ASU 06:57 → 3E 12:01